=== PATIENT | female | born 1955 | race Two or more races ===

== ENCOUNTER 2018-06-05 17:37 | Emergency (ER) | payer MEDICARE, OTHER ==
[~2018-06-05] VITALS: Ht 154.9 cm; Wt 84.8 kg
[2018-06-05 18:36] LABS: Basophils # (auto) 0.1 uL; Eosinophils # (auto) 0.3 uL; Hemoglobin 13.5 g/dL (12.2-16.2); Lymphocytes # (auto) 2.3 uL; Lymphocytes % (auto) 44.5 % (10.0-50.0); Mean Corpuscular Hemoglobin 30.2 pg (28.0-32.0); Mean Corpuscular Hgb Conc. 32.9 g/dL (32.0-36.0); Mean Corpuscular Volume 91.7 fL (80.0-100.0); Monocytes # (auto) 0.4 uL; Monocytes % (auto) 8.1 % (0.0-12.0); Neutrophils # (auto) 2.2 uL; Neutrophils % (auto) 41.4 % (37.0-80.0); Nucleated Red Blood Cells % 0.1 %; Platelet Count (auto) 213 10^3/uL (140-450); Red Blood Cells 4.47 10^6/uL (4.0-5.20); Red Cell Distribution Width 13.2 % (11.8-14.3); White Blood Cell 5.2 10^3/uL (4.4-10.8)
[2018-06-05 18:54] LABS: Alanine Aminotransferase 21 U/L (13-56); Albumin 3.7 g/dL (3.4-5.0); Anion Gap 7 (5-15); Aspartate Aminotransferase 27 U/L (15-37); Blood Urea Nitrogen 17 mg/dL (7-18); Calcium 8.4 mg/dL (8.5-10.1); Carbon Dioxide 26 mmol/L (21-32); Chloride 105 mmol/L (98-107); GFR African American 113 mL/min; GFR Non-African American 93 mL/min; Glucose 98 mg/dL (74-106); Magnesium 2.4 mg/dL (1.6-2.6); Potassium 3.6 mmol/L (3.5-5.1); Sodium 138 mmol/L (136-145)
[2018-06-05 18:59] LABS: Alkaline Phosphatase 157 U/L (45-117); Bilirubin, Total 0.5 mg/dL (0.2-1.0); Total Protein 7.8 g/dL (6.4-8.2)
[2018-06-05] MEDS ORDERED: KETOROLAC TROMETH 60MG/2ML VIAL IM ONE (22:30)
[2018-06-05] MEDS ORDERED: HYDROcodone-ACET 7.5/325MG TAB PO ONE (22:30)
[2018-06-05 22:36] VITALS: BP 150/84
== END 2018-06-06 00:05 | disposition home or self-care (01) ==
LOC: ER 17:42
DX: G43.909 Migraine, unspecified, not intractable, without status migrainosus (principal); E78.5 Hyperlipidemia, unspecified; I10 Essential (primary) hypertension; Z86.73 Personal history of transient ischemic attack (TIA), and cerebral infarction without residual deficits
CPT/HCPCS: 36415; 70450; 80053; 83735; 84484; 85025; 96372; 99284; J1885

== ENCOUNTER → 2019-02-07 | Outpatient (CLI) | payer MEDICARE ==
[~2019-02-07] MED LIST: AML5T PO; ASPI-231 PO; ERGO50003 PO; MULTTAB61 PO; PANT40TA2 PO
[2019-02-07 08:18] LABS: Basophils # (auto) 0.1 uL; Basophils % (auto) 1.3 % (0.0-2.0); Eosinophils # (auto) 0.2 uL; Eosinophils % (auto) 4.1 % (0.0-7.0); Hematocrit 42.2 % (36.0-46.0); Lymphocytes # (auto) 1.8 uL; Lymphocytes % (auto) 34.2 % (10.0-50.0); Mean Corpuscular Hemoglobin 30.9 pg (28.0-32.0); Mean Corpuscular Hgb Conc. 33.3 g/dL (32.0-36.0); Mean Corpuscular Volume 92.9 fL (80.0-100.0); Monocytes # (auto) 0.4 uL; Monocytes % (auto) 7.9 % (0.0-12.0); Neutrophils # (auto) 2.7 uL; Neutrophils % (auto) 52.5 % (37.0-80.0); Nucleated Red Blood Cells % 0.1 %; Platelet Count (auto) 208 10^3/uL (140-450); Red Blood Cells 4.54 10^6/uL (4.0-5.20); Red Cell Distribution Width 13.3 % (11.8-14.3); White Blood Cell 5.2 10^3/uL (4.4-10.8)
[2019-02-07 09:03] LABS: Potassium 4.2 mmol/L (3.5-5.1)
[2019-02-07 09:11] LABS: Albumin 3.8 g/dL (3.4-5.0); Bilirubin, Total 0.6 mg/dL (0.2-1.0); Total Protein 7.7 g/dL (6.4-8.2)
== END | disposition home or self-care (01) ==
LOC: LAB 08:02
PROVIDERS: ATTEND Internal Medicine
DX: I10 Essential (primary) hypertension (principal); R73.9 Hyperglycemia, unspecified
CPT/HCPCS: 36415; 80053; 80061; 82607; 82746; 83036; 84443; 85025

== ENCOUNTER 2019-02-28 09:51 | Emergency (ER) | payer MEDICARE ==
[~2019-02-28] VITALS: Ht 157.5 cm; Wt 83.0 kg
[2019-02-28 10:52] LABS: Basophils # (auto) 0 uL; Basophils % (auto) 0.8 % (0.0-2.0); Eosinophils # (auto) 0.2 uL; Eosinophils % (auto) 4.3 % (0.0-7.0); Hematocrit 42.8 % (36.0-46.0); Hemoglobin 14.3 g/dL (12.2-16.2); Lymphocytes # (auto) 1.7 uL; Lymphocytes % (auto) 32.1 % (10.0-50.0); Mean Corpuscular Hemoglobin 30.8 pg (28.0-32.0); Mean Corpuscular Hgb Conc. 33.3 g/dL (32.0-36.0); Mean Corpuscular Volume 92.3 fL (80.0-100.0); Monocytes # (auto) 0.4 uL; Monocytes % (auto) 7.6 % (0.0-12.0); Neutrophils % (auto) 55.2 % (37.0-80.0); Nucleated Red Blood Cells % 0.1 %; Platelet Count (auto) 204 10^3/uL (140-450); Red Blood Cells 4.64 10^6/uL (4.0-5.20); Red Cell Distribution Width 13.2 % (11.8-14.3); White Blood Cell 5.3 10^3/uL (4.4-10.8)
[2019-02-28 11:06] LABS: INR 0.98 (0.9-1.15); Partial Thromboplastin Time 26.8 sec (23.64-32.05)
[2019-02-28 11:10] LABS: Anion Gap 6 (5-15); Blood Urea Nitrogen 12 mg/dL (7-18); Calcium 8.4 mg/dL (8.5-10.1); Carbon Dioxide 28 mmol/L (21-32); Chloride 108 mmol/L (98-107); Glucose 95 mg/dL (74-106); Potassium 3.6 mmol/L (3.5-5.1); Sodium 142 mmol/L (136-145)
[2019-02-28] MEDS ORDERED: CLOPIDOGREL BISULFATE 75 MG TAB PO ONE (11:15)
[2019-02-28 11:16] LABS: Alanine Aminotransferase 14 U/L (13-56); Alkaline Phosphatase 156 U/L (45-117); Aspartate Aminotransferase 22 U/L (15-37); BUN/Creatinine Ratio 17.4; Bilirubin, Total 0.7 mg/dL (0.2-1.0); GFR African American 111 mL/min; GFR Non-African American 92 mL/min; Total Protein 7.7 g/dL (6.4-8.2)
[2019-02-28 11:53] VITALS: BP 162/94
== END 2019-02-28 11:59 | disposition short-term general hospital (02) ==
LOC: ER 09:55
DX: R20.0 Anesthesia of skin (principal); I10 Essential (primary) hypertension; G45.9 Transient cerebral ischemic attack, unspecified; E78.5 Hyperlipidemia, unspecified; Z86.73 Personal history of transient ischemic attack (TIA), and cerebral infarction without residual deficits
CPT/HCPCS: 36415; 70450; 71045; 80053; 84484; 85025; 85610; 85730; 93005; 94761; 99291

== ENCOUNTER 2019-07-14 09:46 | Inpatient (IN) | payer MEDICARE, OTHER ==
[~2019-07-14] VITALS: Ht 152.4 cm; Wt 63.0 kg
[2019-07-14 10:07] LABS: Basophils # (auto) 0.1 10 ^3/uL (0-0.2); Eosinophils # (auto) 0.2 10 ^3/uL (0-0.8); Eosinophils % (auto) 3.6 % (0.0-7.0); Hematocrit 41.2 % (36.0-46.0); Hemoglobin 13.8 g/dL (12.2-16.2); Lymphocytes # (auto) 1.9 10 ^3/uL (0.4-5.4); Lymphocytes % (auto) 32.2 % (10.0-50.0); Mean Corpuscular Hemoglobin 31.4 pg (28.0-32.0); Mean Corpuscular Hgb Conc. 33.6 g/dL (32.0-36.0); Mean Corpuscular Volume 93.4 fL (80.0-100.0); Monocytes # (auto) 0.3 10 ^3/uL (0-1.3); Monocytes % (auto) 4.5 % (0.0-12.0); Neutrophils # (auto) 3.4 10 ^3/uL (1.6-8.6); Neutrophils % (auto) 58.7 % (37.0-80.0); Nucleated Red Blood Cells % 0.1 %; Platelet Count (auto) 193 10^3/uL (140-450); Red Blood Cells 4.41 10^6/uL (4.0-5.20); Red Cell Distribution Width 13.4 % (11.8-14.3); White Blood Cell 5.9 10^3/uL (4.4-10.8)
[2019-07-14 10:09] LABS: Urine Bacteria NONE SEEN /hpf (None Seen); Urine Blood TRACE /uL (Negative); Urine Specific Gravity 1.011 (1.001-1.035); Urine WBC 1 /hpf (0 - 5)
[2019-07-14 10:23] LABS: Anion Gap 8 (5-15); Blood Urea Nitrogen 11 mg/dL (7-18); Carbon Dioxide 24 mmol/L (21-32); Chloride 107 mmol/L (98-107); Glucose 191 mg/dL (74-106); Potassium 3.6 mmol/L (3.5-5.1); Sodium 139 mmol/L (136-145)
[2019-07-14] MEDS ORDERED: SODIUM CHLORIDE 0.9% 1,000 ML IV ONE (10:27)
[2019-07-14 10:29] LABS: Alanine Aminotransferase 15 U/L (13-56); Alkaline Phosphatase 137 U/L (45-117); Aspartate Aminotransferase 18 U/L (15-37); BUN/Creatinine Ratio 12.8; Bilirubin, Total 0.5 mg/dL (0.2-1.0); GFR African American 86 mL/min; GFR Non-African American 71 mL/min; Total Protein 8.1 g/dL (6.4-8.2)
[2019-07-14] MEDS ORDERED: ONDANSETRON HCL 4 MG/2 ML VIAL ONE (10:29)
[2019-07-14] MEDS ORDERED: ONDANSETRON HCL 4 MG/2 ML VIAL IV ONE ×2 (10:30→12:00)
[2019-07-14 10:54] LABS: INR 1.01 (0.9-1.15); Partial Thromboplastin Time 24.6 sec (23.64-32.05)
[2019-07-14] MEDS ORDERED: DEXTROSE (50%) 50ML SYRG IV PRN (12:45)
[2019-07-14] MEDS ORDERED: MORPHINE SULF INJ 2 MG/ML SYRINGE 1ML IV PRN (12:45)
[2019-07-14] MEDS ORDERED: NITROGLYCERIN 0.4 MG SL TAB SL PRN (12:45)
[2019-07-14] MEDS ORDERED: PANTOPRAZOLE 40 MG/10 ML VIAL INJ IV ONE (12:45)
[2019-07-14] MEDS ORDERED: LABETALOL HCL 5 MG/ML ML 20ML VIAL IV PRN (12:45)
[2019-07-14] MEDS ORDERED: PROMETHAZINE HCL 25 MG/ML 1ML IV ONE (13:00)
[2019-07-14] MEDS: SODIUM CHLORIDE 0.9% 1,000 ML IV SCH ×2 (13:08→14:47)
[2019-07-14 13:09] LABS: Amylase 68 U/L (25-115); Lipase 110 U/L (73-393)
[2019-07-14 13:12] LABS: Creatine Kinase IFCC 128 U/L (26-192)
[2019-07-14 13:19] LABS: Alcohol, Urine < 3.0 mg/dL (0-5); Amphetamine Screen, Urine NEGATIVE (NEGATIVE); Barbiturate Scree,Urine NEGATIVE (NEGATIVE); Benzodiazephine Screen, Urine NEGATIVE (NEGATIVE); Cannabinoid Screen, Urine NEGATIVE (NEGATIVE); Cocaine Screen, Urine NEGATIVE (NEGATIVE); Opiate Scree,Urine NEGATIVE (NEGATIVE); Phencyclidine Screen, Urine NEGATIVE (NEGATIVE)
[2019-07-14 17:00] VITALS: BP 144/75
[2019-07-14] MEDS: ACCU-CHEK COMFORT CURVE STRIP VI SCH (17:57)
[2019-07-14] MEDS: InsuLIN REG 1unit/0.01ml Soln (100units/ml) SC SCH (17:58)
[2019-07-14 18:09] LABS: Hematocrit 39.3 % (36.0-46.0); Hemoglobin 13.4 g/dL (12.2-16.2)
[2019-07-14] MEDS ORDERED: METOPROLOL TARTRATE 1MG/1ML-5ML VIAL IV ONE (21:09)
[2019-07-14] MEDS ORDERED: POTASSIUM CHLORIDE 20 MEQ, LIDOCAINE 1% (LOCAL ANESTH.) 2 ML in SODIUM CHL 0.9% 100 ML IV ONE (21:15)
[2019-07-14 21:23] VITALS: BP 157/83
[2019-07-14] MEDS: METOPROLOL TARTRATE 1MG/1ML-5ML VIAL IV SCH ×2 (21:23→22:22)
[2019-07-14] MEDS: ONDANSETRON HCL 4 MG/2 ML VIAL IV PRN (21:24)
[2019-07-14] MEDS: ATORVASTATIN 20 MG TAB PO SCH (22:00)
[2019-07-14] MEDS ORDERED: PANTOPRAZOLE 40 MG TAB PO SCH (22:00)
[2019-07-14] MEDS ORDERED: LORazepam 2MG/ML-1ML VIAL IV PRN (22:00)
[2019-07-14] MEDS ORDERED: ATORVASTATIN 20 MG TAB PO SCH (22:00)
[2019-07-14] MEDS: ENOXAPARIN SOD 80 MG/0.8ML SYRINGE SC SCH (23:11)
[2019-07-15] MEDS: InsuLIN REG 1unit/0.01ml Soln (100units/ml) SC SCH ×4 (00:49→18:00)
[2019-07-15 01:03] LABS: Hematocrit 39.9 % (36.0-46.0); Hemoglobin 13.3 g/dL (12.2-16.2)
[2019-07-15] MEDS: ONDANSETRON HCL 4 MG/2 ML VIAL IV PRN ×3 (03:29→22:53)
[2019-07-15 04:41] VITALS: BP 134/67
[2019-07-15] MEDS: SODIUM CHLORIDE 0.9% 1,000 ML IV SCH (04:41)
[2019-07-15] MEDS: ACCU-CHEK COMFORT CURVE STRIP VI SCH ×4 (06:00→18:29)
[2019-07-15 07:06] LABS: Hematocrit 38.8 % (36.0-46.0)
[2019-07-15 09:16] VITALS: BP 129/66
[2019-07-15] MEDS ORDERED: ASPirin-EC 81 mg tab PO SCH (10:00)
[2019-07-15] MEDS: amLODIPine BESYLATE 5 MG TAB PO SCH (10:00)
[2019-07-15] MEDS: ENOXAPARIN SOD 80 MG/0.8ML SYRINGE SC SCH ×2 (10:00→22:40)
[2019-07-15] MEDS: SOD CHL 0.9%/ KCL 20MEQ 1,000 ML IV SCH ×2 (11:16→17:35)
[2019-07-15] MEDS: PANTOPRAZOLE 40 MG/10 ML VIAL INJ IV SCH ×2 (11:16→22:40)
[2019-07-15 11:23] LABS: Basophils # (auto) 0 10 ^3/uL (0-0.2); Basophils % (auto) 0.4 % (0.0-2.0); Eosinophils # (auto) 0 10 ^3/uL (0-0.8); Hematocrit 38.9 % (36.0-46.0); Lymphocytes # (auto) 0.9 10 ^3/uL (0.4-5.4); Mean Corpuscular Hemoglobin 30.9 pg (28.0-32.0); Mean Corpuscular Hgb Conc. 33.4 g/dL (32.0-36.0); Mean Corpuscular Volume 92.5 fL (80.0-100.0); Monocytes # (auto) 0.4 10 ^3/uL (0-1.3); Monocytes % (auto) 3.3 % (0.0-12.0); Neutrophils # (auto) 10.1 10 ^3/uL (1.6-8.6); Neutrophils % (auto) 88.3 % (37.0-80.0); Platelet Count (auto) 212 10^3/uL (140-450); Red Cell Distribution Width 13.2 % (11.8-14.3); White Blood Cell 11.5 10^3/uL (4.4-10.8)
[2019-07-15 11:39] LABS: Albumin 3.9 g/dL (3.4-5.0); Calcium 8.7 mg/dL (8.5-10.1); Potassium 3.5 mmol/L (3.5-5.1)
[2019-07-15 11:42] LABS: BUN/Creatinine Ratio 16.9; Bilirubin, Total 0.6 mg/dL (0.2-1.0); Total Protein 7.5 g/dL (6.4-8.2)
[2019-07-15] MEDS ORDERED: KETOROLAC TROMETH 15 mg/ml 1ML VL IV PRN (12:30)
[2019-07-15 12:48] VITALS: BP 148/80
[2019-07-15 17:27] VITALS: BP 145/82
[2019-07-15] MEDS ORDERED: hydrALAZINE HCL 20 MG/ML VL IV PRN (19:15)
[2019-07-15] MEDS ORDERED: METOPROLOL TARTRATE 1MG/1ML-5ML VIAL IV ONE (20:20)
[2019-07-15] MEDS: METOPROLOL TARTRATE 1MG/1ML-5ML VIAL IV SCH ×3 (20:25→20:57)
[2019-07-15 22:00] VITALS: BP 121/77
[2019-07-15] MEDS: ATORVASTATIN 20 MG TAB PO SCH (22:40)
[2019-07-15] MEDS: ACETAMINOPHEN 500 MG TAB PO PRN (22:54)
[2019-07-16] MEDS: ACCU-CHEK COMFORT CURVE STRIP VI SCH ×4 (00:06→18:25)
[2019-07-16 05:23] VITALS: BP 127/73
[2019-07-16] MEDS: SOD CHL 0.9%/ KCL 20MEQ 1,000 ML IV SCH ×3 (05:46→21:29)
[2019-07-16] MEDS: InsuLIN REG 1unit/0.01ml Soln (100units/ml) SC SCH ×4 (05:46→18:00)
[2019-07-16 06:00] VITALS: BP 125/78
[2019-07-16 08:51] VITALS: BP 125/78
[2019-07-16] MEDS: PANTOPRAZOLE 40 MG/10 ML VIAL INJ IV SCH ×2 (10:10→21:32)
[2019-07-16] MEDS: ENOXAPARIN SOD 80 MG/0.8ML SYRINGE SC SCH ×2 (10:11→21:36)
[2019-07-16] MEDS: amLODIPine BESYLATE 5 MG TAB PO SCH (10:19)
[2019-07-16] MEDS ORDERED: LORazepam 0.5 MG TAB PO ONE (11:00)
[2019-07-16] MEDS ORDERED: IOHEXOL 350 MG/ML 100ML IJ ONE (11:01)
[2019-07-16] MEDS: ONDANSETRON HCL 4 MG/2 ML VIAL IV PRN (11:13)
[2019-07-16] MEDS: ACETAMINOPHEN 500 MG TAB PO PRN (11:13)
[2019-07-16 11:35] VITALS: BP 137/83
[2019-07-16 15:45] VITALS: BP 124/70
[2019-07-16 20:00] VITALS: BP 132/74
[2019-07-16] MEDS: ATORVASTATIN 20 MG TAB PO SCH (21:32)
[2019-07-16] MEDS: LACTULOSE 20Gm/30ML SOLN PO PRN (21:48)
[2019-07-17] VITALS: BP 108/53
[2019-07-17] MEDS: ACCU-CHEK COMFORT CURVE STRIP VI SCH ×5 (01:30→23:56)
[2019-07-17] MEDS: SOD CHL 0.9%/ KCL 20MEQ 1,000 ML IV SCH ×3 (02:55→17:50)
[2019-07-17 04:00] VITALS: BP 139/86
[2019-07-17 05:24] LABS: Calcium 8.6 mg/dL (8.5-10.1); Potassium 3.6 mmol/L (3.5-5.1)
[2019-07-17 05:27] LABS: BUN/Creatinine Ratio 16.4
[2019-07-17] MEDS: InsuLIN REG 1unit/0.01ml Soln (100units/ml) SC SCH ×5 (05:53→23:57)
[2019-07-17 07:40] VITALS: BP 131/77
[2019-07-17] MEDS: ENOXAPARIN SOD 80 MG/0.8ML SYRINGE SC SCH ×2 (10:00→20:34)
[2019-07-17] MEDS: PANTOPRAZOLE 40 MG/10 ML VIAL INJ IV SCH ×2 (10:19→20:41)
[2019-07-17] MEDS: ACETAMINOPHEN 500 MG TAB PO PRN ×2 (10:19→23:56)
[2019-07-17] MEDS: amLODIPine BESYLATE 5 MG TAB PO SCH (10:21)
[2019-07-17] MEDS ORDERED: LIDOCAINE 2%HCL (LOCAL ANESTH.) INJ 20ML MDV ONE (11:09)
[2019-07-17] MEDS ORDERED: VANCOMYCIN 1GM/250ML 250 ML IV ONE (11:24)
[2019-07-17] MEDS ORDERED: VANCOMYCIN HCL 1000 MG VL ONE (11:41)
[2019-07-17] MEDS ORDERED: fentaNYL CITRATE 100 MCG/2 ML VL ONE (11:47)
[2019-07-17] MEDS ORDERED: MIDAZOLAM HCL 1MG/1ML-2 ML VIAL ONE (11:47)
[2019-07-17 13:26] VITALS: BP 140/78
[2019-07-17 15:45] VITALS: BP 151/78
[2019-07-17] MEDS: METOPROLOL TARTRATE 50 MG TAB PO SCH ×2 (17:40→17:41)
[2019-07-17] MEDS ORDERED: dilTIAZem 25 MG/5 ML VIAL IV ONE (18:15)
[2019-07-17] MEDS ORDERED: AMIODARONE HCL 200 MG TAB PO ONE (18:15)
[2019-07-17] MEDS ORDERED: DIGOXIN (250MCG/ML) 2 ML AMPULE IV ONE ×2 (18:15→21:00)
[2019-07-17] MEDS ORDERED: DIGOXIN (250MCG/ML) 2 ML AMPULE ONE (18:16)
[2019-07-17 20:00] VITALS: BP 130/84
[2019-07-17] MEDS: ATORVASTATIN 20 MG TAB PO SCH (20:42)
[2019-07-18] VITALS (9 sets, daily range): BP systolic 108–137; BP diastolic 61–79
[2019-07-18] MEDS: ACCU-CHEK COMFORT CURVE STRIP VI SCH ×3 (05:14→17:55)
[2019-07-18] MEDS: InsuLIN REG 1unit/0.01ml Soln (100units/ml) SC SCH ×3 (05:14→17:55)
[2019-07-18] MEDS: SOD CHL 0.9%/ KCL 20MEQ 1,000 ML IV SCH ×3 (06:27→14:49)
[2019-07-18 09:30] LABS: Basophils # (auto) 0.1 10 ^3/uL (0-0.2); Basophils % (auto) 0.7 % (0.0-2.0); Eosinophils # (auto) 0.2 10 ^3/uL (0-0.8); Eosinophils % (auto) 2.1 % (0.0-7.0); Lymphocytes # (auto) 1.7 10 ^3/uL (0.4-5.4); Lymphocytes % (auto) 20.5 % (10.0-50.0); Mean Corpuscular Hemoglobin 31.3 pg (28.0-32.0); Mean Corpuscular Hgb Conc. 33.3 g/dL (32.0-36.0); Mean Corpuscular Volume 93.9 fL (80.0-100.0); Monocytes # (auto) 0.6 10 ^3/uL (0-1.3); Monocytes % (auto) 7.1 % (0.0-12.0); Neutrophils # (auto) 5.6 10 ^3/uL (1.6-8.6); Neutrophils % (auto) 69.6 % (37.0-80.0); Platelet Count (auto) 206 10^3/uL (140-450); Red Blood Cells 4.79 10^6/uL (4.0-5.20); Red Cell Distribution Width 13.3 % (11.8-14.3); White Blood Cell 8.1 10^3/uL (4.4-10.8)
[2019-07-18 09:42] LABS: Albumin 3.2 g/dL (3.4-5.0); Calcium 8.1 mg/dL (8.5-10.1); Potassium 4.5 mmol/L (3.5-5.1)
[2019-07-18 09:46] LABS: BUN/Creatinine Ratio 13.6; Bilirubin, Total 0.8 mg/dL (0.2-1.0); Total Protein 6.9 g/dL (6.4-8.2)
[2019-07-18] MEDS: amLODIPine BESYLATE 5 MG TAB PO SCH (09:59)
[2019-07-18] MEDS: AMIODARONE HCL 200 MG TAB PO SCH ×2 (10:02→21:46)
[2019-07-18] MEDS: DIGOXIN 0.125 MG TAB PO SCH (10:03)
[2019-07-18] MEDS: PANTOPRAZOLE 40 MG/10 ML VIAL INJ IV SCH ×2 (10:03→21:45)
[2019-07-18] MEDS: METOPROLOL TARTRATE 50 MG TAB PO SCH (10:03)
[2019-07-18] MEDS: ENOXAPARIN SOD 80 MG/0.8ML SYRINGE SC SCH ×2 (10:04→21:46)
[2019-07-18] MEDS: ATORVASTATIN 20 MG TAB PO SCH (21:46)
[2019-07-19] MEDS: ACCU-CHEK COMFORT CURVE STRIP VI SCH ×4 (00:33→17:42)
[2019-07-19] MEDS: SOD CHL 0.9%/ KCL 20MEQ 1,000 ML IV SCH ×2 (00:34→08:53)
[2019-07-19 05:00] VITALS: BP 144/76
[2019-07-19] MEDS: InsuLIN REG 1unit/0.01ml Soln (100units/ml) SC SCH ×4 (05:23→17:42)
[2019-07-19 08:52] VITALS: BP 141/74
[2019-07-19] MEDS: ONDANSETRON HCL 4 MG/2 ML VIAL IV PRN (08:54)
[2019-07-19] MEDS: PANTOPRAZOLE 40 MG/10 ML VIAL INJ IV SCH ×2 (08:54→22:17)
[2019-07-19] MEDS: amLODIPine BESYLATE 5 MG TAB PO SCH (08:55)
[2019-07-19] MEDS: AMIODARONE HCL 200 MG TAB PO SCH ×2 (08:55→22:17)
[2019-07-19] MEDS: METOPROLOL TARTRATE 50 MG TAB PO SCH (08:59)
[2019-07-19] MEDS: DIGOXIN 0.125 MG TAB PO SCH (09:00)
[2019-07-19] MEDS: ENOXAPARIN SOD 80 MG/0.8ML SYRINGE SC SCH ×2 (09:00→22:17)
[2019-07-19 12:48] VITALS: BP 147/77
[2019-07-19 16:43] VITALS: BP 145/70
[2019-07-19] MEDS: LACTULOSE 20Gm/30ML SOLN PO PRN (18:18)
[2019-07-19 22:00] VITALS: BP 150/76
[2019-07-19] MEDS: ATORVASTATIN 20 MG TAB PO SCH (22:17)
[2019-07-20] MEDS: SOD CHL 0.9%/ KCL 20MEQ 1,000 ML IV SCH ×2 (00:03→05:55)
[2019-07-20] MEDS: ACCU-CHEK COMFORT CURVE STRIP VI SCH ×3 (00:03→12:00)
[2019-07-20 05:00] VITALS: BP 144/71
[2019-07-20] MEDS: InsuLIN REG 1unit/0.01ml Soln (100units/ml) SC SCH ×3 (06:20→12:37)
[2019-07-20 08:49] VITALS: BP 139/81
[2019-07-20] MEDS ORDERED: APIXABAN 5 MG TAB PO ONE (09:30)
[2019-07-20] MEDS: PANTOPRAZOLE 40 MG/10 ML VIAL INJ IV SCH (10:06)
[2019-07-20] MEDS: METOPROLOL TARTRATE 50 MG TAB PO SCH (10:09)
[2019-07-20] MEDS: amLODIPine BESYLATE 5 MG TAB PO SCH (10:10)
[2019-07-20] MEDS: DIGOXIN 0.125 MG TAB PO SCH (10:10)
[2019-07-20] MEDS: AMIODARONE HCL 200 MG TAB PO SCH (10:10)
[2019-07-20 13:00] VITALS: BP 138/51
== END 2019-07-20 15:46 | disposition home health service (06) | DRG 40 ==
LOC: ER 09:46 → EDBD 09:46 → TELE 09:47 → TELE-CENTR 14:30 → DOU IN ICU 07-16 11:15 → TELE-CENTR 07-18 15:25
PROVIDERS: ADMIT Internal Medicine; ATTEND Family Medicine
PROC: 0JH606Z Insertion of Pacemaker, Dual Chamber into Chest Subcutaneous Tissue and Fascia, Open Approach (ICD-10-PCS; principal; 2019-07-17)
PROC: 02H63JZ Insertion of Pacemaker Lead into Right Atrium, Percutaneous Approach (ICD-10-PCS; 2019-07-17)
PROC: 02HK3JZ Insertion of Pacemaker Lead into Right Ventricle, Percutaneous Approach (ICD-10-PCS; 2019-07-17)
DX: I63.89 Other cerebral infarction (principal); I77.71 Dissection of carotid artery; G93.41 Metabolic encephalopathy; I48.92 Unspecified atrial flutter; I49.5 Sick sinus syndrome; I10 Essential (primary) hypertension; K44.9 Diaphragmatic hernia without obstruction or gangrene; K57.30 Diverticulosis of large intestine without perforation or abscess without bleeding; H53.462 Homonymous bilateral field defects, left side; I48.0 Paroxysmal atrial fibrillation; G43.909 Migraine, unspecified, not intractable, without status migrainosus; I71.9 Aortic aneurysm of unspecified site, without rupture; I27.20 Pulmonary hypertension, unspecified; K57.90 Diverticulosis of intestine, part unspecified, without perforation or abscess without bleeding; E66.01 Morbid (severe) obesity due to excess calories; E11.9 Type 2 diabetes mellitus without complications; F41.9 Anxiety disorder, unspecified; E78.5 Hyperlipidemia, unspecified; Z86.73 Personal history of transient ischemic attack (TIA), and cerebral infarction without residual deficits; Z79.899 Other long term (current) drug therapy; Z68.35 Body mass index [BMI] 35.0-35.9, adult
CPT/HCPCS: 33208; 36415; 70450; 70496; 70498; 70551; 71045; 74176; 76700; 80048; 80053; 80307; 81001; 82150; 82550; 82962; 83036; 83605; 83690; 83735; 83880; 84443; 84484; 85014; 85018; 85025; 85045; 85610; 85652; 85730; 87081; 92610; 93005; 93306; 93886; 96361; 96374; 96375; 96376; 97116; 97163; 97530; 99152; 99153; C1785; C9113; G0378; J1815; J2001; J2250; J2405

== ENCOUNTER 2019-10-02 08:38 | Inpatient (IN) | payer MEDICARE, OTHER ==
[~2019-10-02] VITALS: Ht 160 cm; Wt 79.9 kg
[2019-10-02] MEDS ORDERED: SODIUM CHLORIDE 0.9% 1,000 ML IV ONE (08:52)
[2019-10-02] MEDS ORDERED: ONDANSETRON HCL 4 MG/2 ML VIAL IV ONE (09:00)
[2019-10-02 09:21] LABS: Urine Bacteria NONE SEEN /hpf (None Seen); Urine Blood Negative /uL (Negative); Urine Mucus FEW (None Seen); Urine Specific Gravity 1.016 (1.001-1.035); Urine WBC 10 /hpf (0 - 5)
[2019-10-02 09:22] LABS: Basophils # (auto) 0 10 ^3/uL (0-0.2); Basophils % (auto) 0.6 % (0.0-2.0); Eosinophils # (auto) 0.2 10 ^3/uL (0-0.8); Eosinophils % (auto) 2.8 % (0.0-7.0); Hematocrit 41.3 % (36.0-46.0); Hemoglobin 13.8 g/dL (12.2-16.2); Lymphocytes # (auto) 1.5 10 ^3/uL (0.4-5.4); Lymphocytes % (auto) 25.3 % (10.0-50.0); Mean Corpuscular Hemoglobin 30.9 pg (28.0-32.0); Mean Corpuscular Hgb Conc. 33.4 g/dL (32.0-36.0); Mean Corpuscular Volume 92.5 fL (80.0-100.0); Monocytes # (auto) 0.3 10 ^3/uL (0-1.3); Monocytes % (auto) 4.8 % (0.0-12.0); Neutrophils # (auto) 4.1 10 ^3/uL (1.6-8.6); Neutrophils % (auto) 66.5 % (37.0-80.0); Nucleated Red Blood Cells % 0.1 %; Platelet Count (auto) 177 10^3/uL (140-450); Red Blood Cells 4.46 10^6/uL (4.0-5.20); Red Cell Distribution Width 13.1 % (11.8-14.3); White Blood Cell 6.1 10^3/uL (4.4-10.8)
[2019-10-02 09:40] LABS: INR 1.01 (0.9-1.15); Partial Thromboplastin Time 23.9 sec (23.64-32.05)
[2019-10-02 09:44] LABS: Albumin 3.9 g/dL (3.4-5.0); Anion Gap 5 (5-15); Blood Urea Nitrogen 12 mg/dL (7-18); Calcium 8.5 mg/dL (8.5-10.1); Carbon Dioxide 27 mmol/L (21-32); Chloride 109 mmol/L (98-107); Glucose 143 mg/dL (74-106); Magnesium 2.3 mg/dL (1.6-2.6); Potassium 3.5 mmol/L (3.5-5.1); Sodium 141 mmol/L (136-145)
[2019-10-02 09:49] LABS: Alanine Aminotransferase 13 U/L (13-56); Alkaline Phosphatase 121 U/L (45-117); Aspartate Aminotransferase 14 U/L (15-37); BUN/Creatinine Ratio 14.3; Bilirubin, Total 0.5 mg/dL (0.2-1.0); GFR African American 88 mL/min; GFR Non-African American 73 mL/min; Total Protein 7.7 g/dL (6.4-8.2)
[2019-10-02] MEDS ORDERED: MECLIZINE HCL 25 MG TAB PO ONE (10:00)
[2019-10-02] MEDS ORDERED: ACETAMINOPHEN/CODEINE#3 (300/30mg) TAB PO ONE (12:00)
[2019-10-02] MEDS ORDERED: NITROGLYCERIN 0.4 MG SL TAB SL PRN (12:45)
[2019-10-02] MEDS ORDERED: HYDROcodone-ACET 5/325MG TAB PO PRN (12:45)
[2019-10-02] MEDS ORDERED: ONDANSETRON HCL 4 MG/2 ML VIAL IV PRN (12:45)
[2019-10-02] MEDS ORDERED: hydrALAZINE HCL 20 MG/ML VL IV PRN ×2 (12:45→19:45)
[2019-10-02] MEDS ORDERED: ACETAMINOPHEN 500 MG TAB PO PRN (12:45)
[2019-10-02] MEDS ORDERED: MORPHINE SULF INJ 2 MG/ML SYRINGE 1ML IV PRN ×2 (12:45)
[2019-10-02] MEDS ORDERED: APIXABAN 5 MG TAB PO ONE (13:00)
[2019-10-02] MEDS ORDERED: amLODIPine BESYLATE 5 MG TAB PO ONE (13:00)
[2019-10-02] MEDS ORDERED: PROMETHAZINE HCL 25 MG/ML 1ML IV ONE (13:30)
[2019-10-02] MEDS ORDERED: LORazepam 2MG/ML-1ML VIAL IV PRN (19:45)
[2019-10-02] MEDS ORDERED: ACETAMINOPHEN 325 MG TAB PO PRN (19:45)
[2019-10-02] MEDS ORDERED: IOHEXOL 350 MG/ML 100ML IJ ONE (20:37)
[2019-10-02] MEDS: SODIUM CHLORIDE 0.9% 1,000 ML IV SCH (21:52)
[2019-10-02] MEDS: ATORVASTATIN 20 MG TAB PO SCH (21:59)
[2019-10-02] MEDS: APIXABAN 5 MG TAB PO SCH (21:59)
[2019-10-03 02:47] LABS: Cholesterol 161 mg/dL (< 200); HDL Cholesterol 45 mg/dL (40-59); LDL Cholesterol 97 mg/dL (< 100); Triglycerides 197 mg/dL (< 150)
[2019-10-03 08:45] VITALS: BP 127/64
--- NOTE | 2019-10-03 09:51 | NUR ---
Patient arrived from ER, tele box present, patient SR at this time. Alert and oriented, arousable to name, patient breathing with even unlabored respirations, patient has no s/s of distress noted at this time.
--- NOTE | 2019-10-03 09:53 | NUR ---
Admission Patient confused and unable to provide admission information. History provided by ER history and physical and previous visit. Unable to speak with son, number on file was incorrect. Asked patient if she was able to provide accurate number and patient was not able to do so. Password on file.
[2019-10-03] MEDS: APIXABAN 5 MG TAB PO SCH (09:55)
[2019-10-03] MEDS: MULTIPLE VITAMIN TAB PO SCH (09:56)
[2019-10-03] MEDS: amLODIPine BESYLATE 5 MG TAB PO SCH (09:56)
[2019-10-03] MEDS: PANTOPRAZOLE 40 MG TAB PO SCH (09:57)
[2019-10-03] MEDS: APIXABAN 2.5 MG TAB PO SCH ×2 (10:00→22:10)
--- NOTE | 2019-10-03 10:00 | NUR ---
BRANCH ASSOCIATE TELLER LESTER AT BEDSIDE, INSTRUCTED TO GIVE ONLY 2.5MG OF ELIQUIS. GIVEN AND CHARTED PER BRANCH ASSOCIATE TELLER ORDER.
[2019-10-03] MEDS: SODIUM CHLORIDE 0.9% 1,000 ML IV SCH (10:03)
[2019-10-03] MEDS ORDERED: SERT-274 (10:17)
[2019-10-03] MEDS ORDERED: APIX5TAB (10:17)
[2019-10-03] MEDS ORDERED: LISI10TA6 (10:17)
[2019-10-03] MEDS ORDERED: DIGO0.12 (10:17)
[2019-10-03] MEDS ORDERED: MET25T (10:17)
[2019-10-03] MEDS ORDERED: DIGO0.12 PO (12:17)
[2019-10-03] MEDS ORDERED: LISI10TA6 PO (12:17)
[2019-10-03] MEDS ORDERED: AMIO200T4 PO (12:17)
[2019-10-03] MEDS ORDERED: APIX5TAB PO (12:17)
[2019-10-03] MEDS ORDERED: SERT-274 PO (12:17)
[2019-10-03] MEDS ORDERED: ATOR20TA50 PO (12:17)
[2019-10-03] MEDS ORDERED: MET25T PO (12:17)
[2019-10-03 12:45] VITALS: BP 134/78
--- NOTE | 2019-10-03 15:00 | NUR ---
Patient taken down to MRI, to have pacemaker deactivated and then get MRI brain done.
--- NOTE | 2019-10-03 15:30 | NUR ---
Patient back from MRI.
[2019-10-03 16:58] VITALS: BP 130/72
--- NOTE | 2019-10-03 17:00 | NUR ---
LESTER MENTALLY IMPAIRED TEACHER AT BEDSIDE TO EXPLAIN SHAWANDA, PATIENT ALERT AND ORIENTED X 4. PATIENT VERBALIZED UNDERSTANDING AND SAID THAT SHE HAS HAD ONE BEFORE.
--- NOTE | 2019-10-03 17:20 | NUR ---
Rigo at bedside, with new orders. Multaq 400mg po BID, and ask Dr robison, when he sees patient if 5mg eliquis BID is ok to start.
--- NOTE | 2019-10-03 19:16 | NUR ---
Patient alert and oriented x 4, patient resps even and unlabored, no complaints care endorsed to night nurse.
[2019-10-03 22:00] VITALS: BP 134/64
[2019-10-03] MEDS: DRONEDARONE HCL 400 MG TAB PO SCH (22:10)
[2019-10-03] MEDS: ATORVASTATIN 20 MG TAB PO SCH (22:10)
[2019-10-03] MEDS: METOPROLOL TARTRATE 25 MG TAB PO SCH (22:11)
[2019-10-04] MEDS: SODIUM CHLORIDE 0.9% 1,000 ML IV SCH ×2 (00:21→14:17)
[2019-10-04 05:00] VITALS: BP 120/71
[2019-10-04 06:42] LABS: BUN/Creatinine Ratio 12.3; Calcium 8.6 mg/dL (8.5-10.1); Potassium 3.6 mmol/L (3.5-5.1)
[2019-10-04 06:48] LABS: Basophils # (auto) 0 10 ^3/uL (0-0.2); Basophils % (auto) 0.4 % (0.0-2.0); Eosinophils # (auto) 0.2 10 ^3/uL (0-0.8); Eosinophils % (auto) 3.8 % (0.0-7.0); Hematocrit 40.4 % (36.0-46.0); Hemoglobin 13.9 g/dL (12.2-16.2); Lymphocytes # (auto) 1.5 10 ^3/uL (0.4-5.4); Mean Corpuscular Hgb Conc. 34.5 g/dL (32.0-36.0); Mean Corpuscular Volume 92.7 fL (80.0-100.0); Monocytes # (auto) 0.5 10 ^3/uL (0-1.3); Monocytes % (auto) 6.9 % (0.0-12.0); Neutrophils # (auto) 4.3 10 ^3/uL (1.6-8.6); Neutrophils % (auto) 65.9 % (37.0-80.0); Nucleated Red Blood Cells % 0.2 %; Platelet Count (auto) 186 10^3/uL (140-450); Red Blood Cells 4.36 10^6/uL (4.0-5.20); Red Cell Distribution Width 12.7 % (11.8-14.3); White Blood Cell 6.5 10^3/uL (4.4-10.8)
[2019-10-04 09:00] VITALS: BP 126/60
[2019-10-04 09:02] LABS: INR 1.07 (0.9-1.15); Partial Thromboplastin Time 28.8 sec (23.64-32.05)
[2019-10-04] MEDS ORDERED: APIXABAN 2.5 MG TAB PO SCH (10:00)
[2019-10-04] MEDS ORDERED: MIDAZOLAM HCL 1MG/1ML-2 ML VIAL IV ONE (10:30)
[2019-10-04] MEDS ORDERED: fentaNYL CITRATE 100 MCG/2 ML VL IV ONE (10:30)
[2019-10-04] MEDS ORDERED: LIDOCAINE VISCOUS 2% 15ML UD PO ONE (10:30)
[2019-10-04] MEDS ORDERED: diphenhdrAMINE HCL 50 MG/1 ML VL IV ONE (10:30)
[2019-10-04] MEDS ORDERED: MIDAZOLAM HCL 1MG/1ML-2 ML VIAL ONE (11:21)
[2019-10-04] MEDS ORDERED: diphenhdrAMINE HCL 50 MG/1 ML VL ONE (11:21)
[2019-10-04] MEDS ORDERED: fentaNYL CITRATE 100 MCG/2 ML VL ONE (11:21)
[2019-10-04] MEDS ORDERED: LIDOCAINE VISCOUS 2% 15ML UD ONE (11:21)
[2019-10-04] MEDS: METOPROLOL TARTRATE 25 MG TAB PO SCH ×2 (13:32→21:56)
[2019-10-04] MEDS: APIXABAN 5 MG TAB PO SCH ×2 (13:32→21:55)
[2019-10-04] MEDS: MULTIPLE VITAMIN TAB PO SCH (13:33)
[2019-10-04] MEDS: DRONEDARONE HCL 400 MG TAB PO SCH ×2 (13:33→21:56)
[2019-10-04] MEDS: PANTOPRAZOLE 40 MG TAB PO SCH (13:33)
[2019-10-04] MEDS: amLODIPine BESYLATE 5 MG TAB PO SCH (13:34)
[2019-10-04 14:14] VITALS: BP 122/66
--- NOTE | 2019-10-04 15:00 | NUR ---
Dr Siddiqi talked with family and notified of transfer to [facility]. Family and patient notified of transfer.
--- NOTE | 2019-10-04 16:59 | NUR ---
1659 10/04/19 Contacted by transfer center coordinator Marylin, who is requesting a COVID 19 test with results prior to transfer of patient to [facility]. Notified nurse assigned to patient to perform COVID 19 test. She verbalized understanding.
[2019-10-04 17:00] VITALS: BP 115/65
--- NOTE | 2019-10-04 17:22 | NUR ---
Covid 19 swab done and taken to lab.
--- NOTE | 2019-10-04 18:45 | NUR ---
[facility] transfer department called and stated that they do not yet have a bed for the patient, and the covid screen needs to be resulted before she can transfer, [facility] stated that likely the transfer will happen tomorrow 10/05/19.
[2019-10-04 20:00] VITALS: BP 117/66
[2019-10-04] MEDS: ATORVASTATIN 20 MG TAB PO SCH (21:55)
[2019-10-04 22:00] VITALS: BP 108/58
[2019-10-05 05:00] VITALS: BP 103/57
[2019-10-05] MEDS: SODIUM CHLORIDE 0.9% 1,000 ML IV SCH ×2 (05:11→17:59)
--- NOTE | 2019-10-05 05:12 | NUR ---
Patient is awaiting transfer to [facility]. will test covid-19 negative to be accepted. [facility] bed has to be available for her. patient remained stable all through the shift.
[2019-10-05 09:00] VITALS: BP 118/67
--- NOTE | 2019-10-05 09:12 | NUR ---
0912 10/05/19 faxed negative results of COVID 19 test to transfer center, f/u call made to transfer center coordinator who acknowledged receipt of faxed document. Still waiting for assigned bed.
[2019-10-05] MEDS: APIXABAN 5 MG TAB PO SCH ×2 (09:28→22:27)
[2019-10-05] MEDS: MULTIPLE VITAMIN TAB PO SCH (09:28)
[2019-10-05] MEDS: amLODIPine BESYLATE 5 MG TAB PO SCH (09:28)
[2019-10-05] MEDS: PANTOPRAZOLE 40 MG TAB PO SCH (09:28)
[2019-10-05] MEDS: DRONEDARONE HCL 400 MG TAB PO SCH ×2 (09:28→22:27)
[2019-10-05] MEDS: METOPROLOL TARTRATE 25 MG TAB PO SCH ×2 (09:28→22:28)
[2019-10-05 13:00] VITALS: BP 106/62
[2019-10-05 16:43] VITALS: BP 110/64
--- NOTE | 2019-10-05 17:50 | NUR ---
Transfer Patient signed transfer agreement form. Same placed in chart and is awaiting MD's signature.
--- NOTE | 2019-10-05 19:20 | NUR ---
Opening Shift Note Received report from Breann AMOS. Assumed care of patient, awake and alert. No S/S of distress/SOB or pain. Instructed on POC and to call for assist PRN. Fall precaution measures in place, will continue to monitor for changes Q1hr and PRN.
[2019-10-05 22:00] VITALS: BP 114/61
[2019-10-05] MEDS: ATORVASTATIN 20 MG TAB PO SCH (22:27)
[2019-10-06 05:00] VITALS: BP 105/52
--- NOTE | 2019-10-06 07:13 | NUR ---
Patient stable, no complains of pain, vitals within normal. Endorsed care to Breann AMOS.
--- NOTE | 2019-10-06 07:30 | NUR ---
Opening Shift Note Assumed care of patient, awake and alert sitting up in bed. No S/S of distress/SOB or pain. Instructed on POC and to call for assist PRN, will continue to monitor for changes Q1hr and PRN.
[2019-10-06 09:08] VITALS: BP 106/60
[2019-10-06] MEDS: DRONEDARONE HCL 400 MG TAB PO SCH ×2 (09:33→22:03)
[2019-10-06] MEDS: MULTIPLE VITAMIN TAB PO SCH (09:34)
[2019-10-06] MEDS: PANTOPRAZOLE 40 MG TAB PO SCH (09:34)
[2019-10-06] MEDS: APIXABAN 5 MG TAB PO SCH ×2 (09:34→22:03)
[2019-10-06] MEDS: METOPROLOL TARTRATE 25 MG TAB PO SCH ×2 (09:38→22:02)
[2019-10-06] MEDS: amLODIPine BESYLATE 5 MG TAB PO SCH (09:39)
--- NOTE | 2019-10-06 11:00 | NUR ---
Transfer Return Agreement Transfer Return Agreement signed by and faxed to case aide.
--- NOTE | 2019-10-06 11:19 | NUR ---
1119 10/06/19 Faxed to [facility] transfer center Return Agreement with signatures of patient, physician and [facility] administration. Contacted transfer center and spoke to coordinator who acknowledged receipt of faxed forms. Transfer pending bed availability.
[2019-10-06 13:00] VITALS: BP 113/67
--- NOTE | 2019-10-06 15:12 | NUR ---
Nutrition Assessment Notes please see attached link for complete assessment [employer] needs ABW 66 [id number] kcals (23-25 kcal/kgBW),Est Protein needs: 66-72 gms/day (1.0-1.1 gm/kgBW) Will continue to monitor and reassess prn. Addendum: 10/06/19 at [address] Amended: Links added.
--- NOTE | 2019-10-06 16:30 | NUR ---
Quintanilla catheter dc'd Order to discontinue quintanilla catheter. Quintanilla dc'd with clean technique following deflation of balloon. Patient tolerated well with no complaints of pain. Continue care.
[2019-10-06 17:12] VITALS: BP 99/60
--- NOTE | 2019-10-06 18:00 | NUR ---
Void Patient voided clear urine post Leal removal.
--- NOTE | 2019-10-06 19:25 | NUR ---
Opening Shift Note Received report from Breann AMOS. Assumed care of patient, awake and alert. No S/S of distress/SOB or pain. Instructed on POC and to call for assist PRN. Fall precaution measures in place,will continue to monitor for changes Q1hr and PRN.
[2019-10-06] MEDS: ATORVASTATIN 20 MG TAB PO SCH (22:03)
[2019-10-06 22:54] VITALS: BP 107/61
--- NOTE | 2019-10-07 02:41 | NUR ---
Pt being trans to another hosp Order obtained for transfer of RAYSHAWN ORTIZ to [facility]. Report called/given to Lavon AMOS. Report given to EMS transport team. Medication reconciliation form completed and copy given to patient. Transported via gurney along with copied chart and imaging films/disk and all personal belongings. No distress noted on time of departure. Family notified of destination and room number, verbalized understanding.
== END 2019-10-07 02:41 | disposition short-term general hospital (02) | DRG 64 ==
LOC: ER 08:38 → TELE 08:39 → TELE-CENTR 10-03 08:31
PROVIDERS: ADMIT Nurse Practitioner Acute Care; ATTEND Internal Medicine
PROC: 4B02XSZ Measurement of Cardiac Pacemaker, External Approach (ICD-10-PCS; principal; 2019-10-02)
PROC: B246ZZ4 Ultrasonography of Right and Left Heart, Transesophageal (ICD-10-PCS; 2019-10-04)
DX: I63.542 Cerebral infarction due to unspecified occlusion or stenosis of left cerebellar artery (principal); G93.41 Metabolic encephalopathy; I48.20 Chronic atrial fibrillation, unspecified; D68.69 Other thrombophilia; Q21.1 Atrial septal defect; G81.94 Hemiplegia, unspecified affecting left nondominant side; I49.5 Sick sinus syndrome; E11.9 Type 2 diabetes mellitus without complications; E66.01 Morbid (severe) obesity due to excess calories; E78.5 Hyperlipidemia, unspecified; I48.0 Paroxysmal atrial fibrillation; Z20.828 Contact with and (suspected) exposure to other viral communicable diseases; K57.30 Diverticulosis of large intestine without perforation or abscess without bleeding; H53.462 Homonymous bilateral field defects, left side; I11.9 Hypertensive heart disease without heart failure; I25.10 Atherosclerotic heart disease of native coronary artery without angina pectoris; Z79.01 Long term (current) use of anticoagulants; Z86.73 Personal history of transient ischemic attack (TIA), and cerebral infarction without residual deficits; Z79.82 Long term (current) use of aspirin; Z79.899 Other long term (current) drug therapy; Z95.0 Presence of cardiac pacemaker; Z68.34 Body mass index [BMI] 34.0-34.9, adult
CPT/HCPCS: 36415; 70450; 70496; 70498; 70551; 71045; 80048; 80053; 80061; 80162; 81001; 83735; 83880; 84484; 85025; 85610; 85652; 85730; 86141; 93005; 93306; 93312; 93886; 93926; 93970; 99152; G0378; J2250; J2405